=== PATIENT | male | born 1955 | race Caucasian/White ===

== ENCOUNTER 2017-04-04 10:04 | Emergency (ER) | payer OTHER ==
[~2017-04-04] VITALS: Ht 172.7 cm; Wt 78.4 kg
[~2017-04-04 10:04] MED LIST: ASPI81TA82 PO; CRES20TA PO; LOPR50TA12 PO; LOSA100T PO; PROT40TA PO
[2017-04-04 10:09] VITALS: BP 187/89; PULSE 95; RESP 16; TEMP 98.7; O2SAT 97
[2017-04-04] MEDS ORDERED: METO-309 PO (10:32)
[2017-04-04] MEDS ORDERED: COZA100T PO (10:32)
[2017-04-04] MEDS ORDERED: PROT40TA PO (10:32)
[2017-04-04] MEDS ORDERED: AMLO2.5T PO (10:32)
[2017-04-04] MEDS ORDERED: ASPI-516 CHEW (10:32)
[2017-04-04] MEDS ORDERED: ROSU20 PO (10:32)
--- NOTE | 2017-04-04 10:34 | PD ---
HPI Chief Complaint: Musculoskeletal Complaint Time Seen by Provider: 10:15 Travel History International Travel<30 days: No Contact w/Intl Traveler<30days: No Traveled to known affect area: No History of Present Illness HPI 61-year-old male presents to emergency department complaining of left bicep arm pain after lifting chairs last night. Patient states that he felt the pop and then developed moderate pain in his right bicep. Patient denies numbness or tingling. States that he is able to flex his elbow and shoulder is normal but does have pain. Denies radiation of pain. States that he developed an area of ecchymosis over the biceps. He has been using ice with good relief of pain. Patient has a history of high blood pressure and high cholesterol. Patient is not taking a blood thinner except for aspirin daily. PFSH Past Medical History Hx Anticoagulant Therapy: Yes (81 mg asa) Cardiac Catheterization: Yes Cardiovascular Problems: Yes ([place], htn on meds, 3 stents ) High Cholesterol: Yes Coronary Artery Disease: Yes Diminished Hearing: No GERD: Yes Hypertension: Yes Past Surgical History Coronary Stent: Yes (2011) Social History Alcohol Use: Yes (daily beer and mixed drinks) Tobacco Use: Yes (1ppd) Substance Use: No Allergies-Medications (Allergen,Severity, Reaction): Coded Allergies: No Known Allergies (Unverified Adverse Reaction, Unknown, 04/04/17) Reported Meds & Prescriptions Reported Meds & Active Scripts Active Reported Amlodipine (Amlodipine Besylate) 2.5 Mg Tab 2.5 Mg PO DAILY Protonix (Pantoprazole Sodium) 40 Mg Tab 40 Mg PO DAILY Lopressor (Metoprolol Tartrate) 50 Mg Tab 25 Mg PO BID Crestor (Rosuvastatin Calcium) 20 Mg Tab 20 Mg PO BID Cozaar (Losartan Potassium) 100 Mg Tab 100 Mg PO DAILY Aspirin 81 Mg Chew 81 Mg CHEW DAILY Review of Systems Except as stated in HPI: all other systems reviewed are Neg Physical Exam Narrative GENERAL: Well-nourished, well-developed patient. SKIN: Focused skin assessment warm/dry. HEAD: Normocephalic. EYES: No scleral icterus. No injection or drainage. NECK: Supple, trachea midline. No JVD or lymphadenopathy. CARDIOVASCULAR: Regular rate and rhythm without murmurs, gallops, or rubs. RESPIRATORY: Breath sounds equal bilaterally. No accessory muscle use. GASTROINTESTINAL: Abdomen soft, non-tender, nondistended. MUSCULOSKELETAL: No cyanosis, or edema. Right arm-positive speeds, positive Yergason's. Baljinder sign positive. 6 cm area of ecchymosis of her bicep. DTRs intact. Good capillary refill. Sensation intact. BACK: Nontender without obvious deformity. No CVA tenderness. Data Data Last Documented VS Vital Signs Date Time Temp Pulse Resp B/P (MAP) Pulse Ox O2 Delivery O2 Flow Rate FiO2 04/04/17 10:09 98.7 95 16 187/89 (121) 97 Orders Orders Ed Discharge Order (04/04/17 10:40) MDM Medical Decision Making Medical Screen Exam Complete: Yes Emergency Medical Condition: Yes Differential Diagnosis Right biceps tendon rupture, tendinitis, tendinosis, contusion Narrative Course 61-year-old male presents to emergency department complaining of left bicep arm pain after lifting chairs last night. Patient states that he felt the pop and then developed moderate pain in his right bicep. Patient denies numbness or tingling. States that he is able to flex his elbow and shoulder is normal but does have pain. Denies radiation of pain. States that he developed an area of ecchymosis over the biceps. He has been using ice with good relief of pain. Patient has a history of high blood pressure and high cholesterol. Patient is not taking a blood thinner except for aspirin daily. Vital Signs stable. Exam findings consistent with biceps tendinitis versus rupture versus tear Patient is neurovascularly intact. Advised patient should follow-up with orthopedics within 2-3 days for further treatment and evaluation advised to continue range of motion exercises to reduce complications of this injury. Explained the normal course of this injury. Patient to follow-up with primary care physician within 2-3 days. Return to the emergency department for worsening or persistent symptoms. Diagnosis Primary Impression: Biceps tendonitis Qualified Codes: M75.21 - Bicipital tendinitis, right shoulder Referrals: Wilton Jarvis MD Orthopedist Additional Instructions: Use ice or heat for symptom relief. Elevate the joint above the heart to reduce swelling. You may use compression with Baron wrap or similar to reduce swelling. If symptoms persist or worsen, return to the emergency department. Follow up with your primary care physician within 2 days. Continue light range of motion of the elbow. Disposition: 01 DISCHARGE HOME Condition: Stable Karla Valenzuela 26, 2017 10:34
== END 2017-04-04 10:52 | disposition home or self-care (01) ==
LOC: PHEFT 10:04
DX: M75.22 Bicipital tendinitis, left shoulder (principal); I10 Essential (primary) hypertension; I25.2 Old myocardial infarction; E78.00 Pure hypercholesterolemia, unspecified; I25.10 Atherosclerotic heart disease of native coronary artery without angina pectoris; K21.9 Gastro-esophageal reflux disease without esophagitis; F17.200 Nicotine dependence, unspecified, uncomplicated; Z79.82 Long term (current) use of aspirin; Z79.899 Other long term (current) drug therapy
CPT/HCPCS: 99282